=== PATIENT | female | born 1985 | race Caucasian/White ===

== ENCOUNTER 2017-09-20 17:52 | Emergency (ER) | payer OTHER ==
[~2017-09-20] VITALS: Ht 160 cm; Wt 60.0 kg
[2017-09-20 17:58] VITALS: TEMP 36.9; Ht 160 cm; Wt 60.0 kg
[2017-09-20] MEDS ORDERED: [UNRECOGNIZED DRUG - OTHER] PO (18:29)
[2017-09-20] MEDS ORDERED: FAMOTIDINE IV INJ 20 MG in DEXTROSE 5% 100ML 100 ML IV STA (18:37)
[2017-09-20] MEDS ORDERED: ACETAMINOPHEN 500 MG TAB PO STA (18:37)
[2017-09-20] MEDS ORDERED: ONDANSETRON INJ 2 MG/ML 2 ML VIAL IV STA (18:37)
[2017-09-20] MEDS ORDERED: SODIUM CHLORIDE 0.9% 1000ML 1,000 ML IV STA (18:37)
[2017-09-20 19:11] LABS: BASO % 0.5 %; BASO ABS # 0.03 K/uL (0-0.2); COMPLETE YES; EOS % 0.2 %; HEMATOCRIT 40.5 % (37-47); IG% 0.2 %; LYMPH % 5.4 %; LYMPH ABS # 0.31 K/uL (1.2-3.4); MEAN CELL VOLUME 96.7 fL (80-100); MEAN CORPUSCULAR HEMOGLOBIN 33.7 pg (25-34); MEAN CORPUSCULAR HGB CONC 34.8 g/dl (32-36); MEAN PLATELET VOLUME 9.7 fL (7.4-10.4); MONO % 6.3 %; NEUT % 87.4 %; PLATELET COUNT 241 K/uL (130-400); RED BLOOD COUNT 4.19 M/uL (4.2-5.4); WHITE BLOOD COUNT 5.72 K/uL (4.8-10.8)
[2017-09-20 19:21] LABS: BUN/CREATININE RATIO 22.5 (10-20); CALCIUM 8.9 mg/dl (8.5-10.1); CREATININE 0.74 mg/dl (0.60-1.20); POTASSIUM 3.6 mmol/L (3.5-5.1)
[2017-09-20 19:24] LABS: ALB/GLOB RATIO 1.2 (0.9-2)
--- NOTE | 2017-09-20 19:35 | EMERGENCY ROOM VISIT NOTE ---
History First contact with patient: 18:00 Chief Complaint: ABDOMINAL PAIN Stated Complaint: APPENDACITIS Nursing Triage Summary: pt to the ED with c/o n/v and not feeling well went to see pmd and they palpated abd and sent her here for r/o appy History of Present Illness The patient is a 31 year old female with hx of ovarian cyst who presents to the Emergency Room with complaints of abdominal pain that started this AM. Pain is described as 7/10 and worse in the RLQ. Associated with nausea and vomiting ( vomited x 2 this AM, watery, non-bilious, non-bloody), chills, decreased appetite. Had one small but soft/normal BM this AM. Denies fever, sob, cp, diarrhea/constipation, numbness/tingling. Went to PCP who was concerned for appendicitis and sent her here. Upreg reported to be neg at PCP office today. Pt is and sexually active. LMP was 08/25. 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 Review of Systems see below Constitutional: + chills, + fatigue, No fever Respiratory: No shortness of breath Cardiovascular: No chest pain Abdomen: + pain, + nausea, + vomiting, No diarrhea, No constipation Genitourinary - Female: No dysuria Neurologic: No numbness/tingling Past Medical/Surgical History Medical Problems: (1) Ovarian cyst Social History Smoking Status: Never Smoker Alcohol Use: none Drug Use: none Occupation Status: [employer] student Current/Historical Medications Scheduled [Juice Plus Complete], 2 CAP PO TID Scheduled PRN Ondansetron Hcl (Zofran), 4 MG PO Q6H PRN for Nausea Physical Exam Vital Signs Date Time Temp Pulse Resp B/P (MAP) Pulse Ox O2 Delivery O2 Flow Rate FiO2 09/20/17 20:07 71 16 101/56 100 Room Air 09/20/17 17:58 36.9 76 16 115/51 100 Room Air Physical Exam see below General Appearance: no apparent distress Head: normocephalic, atraumatic Eyes: normal inspection, sclerae normal Respiratory/Chest: lungs clear, normal breath sounds Cardiovascular: regular rate, rhythm, no edema, no murmur Abdomen / GI: normal bowel sounds, soft, + tenderness (TTP in the epigastric , LUQ, RLQ, and suprapubic regions; more tender over RLQ), + pertinent finding ( no rebound tenderness; neg price's sign and neg psoas sign) Back: no CVA tenderness Extremities: normal inspection, normal capillary refill, no pedal edema Neurologic/Psych: alert, oriented x 3 Medical Decision & Procedures Laboratory Results 09/20/17 18:10 Red Blood Count 4.19, Mean Corpuscular Volume 96.7, Mean Corpuscular Hemoglobin 33.7, Mean Corpuscular Hemoglobin Concent 34.8, Mean Platelet Volume 9.7, Neutrophils (%) (Auto) 87.4, Lymphocytes (%) (Auto) 5.4, Monocytes (%) (Auto) 6.3, Eosinophils (%) (Auto) 0.2, Basophils (%) (Auto) 0.5, Neutrophils # (Auto) 5.00, Lymphocytes # (Auto) 0.31, Monocytes # (Auto) 0.36, Eosinophils # (Auto) 0.01, Basophils # (Auto) 0.03 09/20/17 18:10 Test 09/20/17 18:10 White Blood Count 5.72 K/uL (4.8-10.8) Red Blood Count 4.19 M/uL (4.2-5.4) Hemoglobin 14.1 g/dL (12.0-16.0) Hematocrit 40.5 % (37-47) Mean Corpuscular Volume 96.7 fL (80-100) Mean Corpuscular Hemoglobin 33.7 pg (25-34) Mean Corpuscular Hemoglobin Concent 34.8 g/dl (32-36) Platelet Count 241 K/uL (130-400) Mean Platelet Volume 9.7 fL (7.4-10.4) Neutrophils (%) (Auto) 87.4 % Lymphocytes (%) (Auto) 5.4 % Monocytes (%) (Auto) 6.3 % Eosinophils (%) (Auto) 0.2 % Basophils (%) (Auto) 0.5 % Neutrophils # (Auto) 5.00 K/uL (1.4-6.5) Lymphocytes # (Auto) 0.31 K/uL (1.2-3.4) Monocytes # (Auto) 0.36 K/uL (0.11-0.59) Eosinophils # (Auto) 0.01 K/uL (0-0.5) Basophils # (Auto) 0.03 K/uL (0-0.2) RDW Standard Deviation 40.8 fL (36.4-46.3) RDW Coefficient of Variation 11.5 % (11.5-14.5) Immature Granulocyte % (Auto) 0.2 % Immature Granulocyte # (Auto) 0.01 K/uL (0.00-0.02) Urine Color YELLOW Urine Appearance CLEAR (CLEAR) Urine pH 6.5 (4.5-7.5) Urine Specific [place] 1.021 (1.000-1.030) Urine Protein NEG (NEG) Urine Glucose (UA) NEG (NEG) Urine Ketones 2+ (NEG) Urine Occult Blood NEG (NEG) Urine Nitrite NEG (NEG) Urine Bilirubin NEG (NEG) Urine Urobilinogen NEG (NEG) Urine Leukocyte Esterase SMALL (NEG) Urine WBC (Auto) 1-5 /hpf (0-5) Urine RBC (Auto) 0-4 /hpf (0-4) Urine Hyaline Casts (Auto) 1-5 /lpf (0-5) Urine Epithelial Cells (Auto) >30 /lpf (0-5) Urine Bacteria (Auto) NEG (NEG) Urine Test NEG (NEG) Anion Gap 7.0 mmol/L (3-11) Est Creatinine Clear Calc Drug Dose 92.8 ml/min Estimated GFR () 126.9 Estimated GFR (Non- 109.5 BUN/Creatinine Ratio 22.5 (10-20) Calcium Level 8.9 mg/dl (8.5-10.1) Total Bilirubin 1.3 mg/dl (0.2-1) Aspartate Amino Transf (AST/SGOT) 23 U/L (15-37) Alanine Aminotransferase (ALT/SGPT) 31 U/L (12-78) Alkaline Phosphatase 51 U/L (45-117) Total Protein 7.8 gm/dl (6.4-8.2) Albumin 4.3 gm/dl (3.4-5.0) Globulin 3.5 gm/dl (2.5-4.0) Albumin/Globulin Ratio 1.2 (0.9-2) Lipase 115 U/L (73-393) Medications Administered Medications (Trade) Dose Ordered Sig/Jennie Route Start Time Stop Time Status Last Admin Dose Admin Ondansetron HCl (Zofran Inj) 4 mg NOW STAT IV 09/20/17 18:37 09/20/17 18:40 DC 09/20/17 18:51 4 MG Acetaminophen (Tylenol Tab) 1,000 mg NOW STAT PO 09/20/17 18:37 09/20/17 18:40 DC 09/20/17 18:50 1,000 MG Famotidine 20 mg/ Dextrose 102 ml @ 200 mls/hr ONE STAT IV 09/20/17 18:37 09/20/17 19:07 DC 09/20/17 18:54 200 MLS/HR Sodium Chloride 1,000 ml @ 999 mls/hr Q1H1M STAT IV 09/20/17 18:37 09/20/17 19:37 DC 09/20/17 18:37 999 MLS/HR ED Course CBC: wnl CMP: wnl Lipase: 115 nl UA: small LE no WBC Upreg: neg US appendix: appendix not visualized. Trace RLQ fluid US pelvis complete and transvaginal: normal uterus and R ovary. L ovary [address] abdomen/pelvis w/t IV contrast given improvement in nausea with medications but continued pain to rule out appendicitis - normal appendix, no bowel wall thickening or obstruction noted, 3.4cm L ovarian cyst consistent with US and physiologic pelvic free fluid Clinically stable for discharged home with Zofran 4mg PO Q6H 10 tabs and PCP follow up Medical Decision 31 year old female with hx of ovarian cyst present with abdominal pain associated with n/v consistent with likely viral gastroenteritis vs. appendicitis vs. hemorrhagic ovarian cyst vs. colitis -Ordered imaging: US complete pelvis, transvaginal pelvis and appendix US -Ordered labs Upreg, UA/UCx, CBC w/t diff, CMP, lipase -Ordered meds: Zofran 4mg IV, Pepcid 20mg IV and Tylenol 1000mg PO once/stat -Will follow up on results and manage as indicated Impression Primary Impression: Acute gastroenteritis Departure Information Prescriptions Ondansetron Hcl (ZOFRAN) 4 Mg Tab 4 MG PO Q6H Y for Nausea, #10 TAB Prov: Angie Richey M.D. 09/20/17 Referrals No Doctor, Assigned (PCP) Patient Instructions My [facility]
--- NOTE | 2017-09-20 20:00 | EMERGENCY ROOM VISIT NOTE ---
History Report prepared by Julius: Karen Hong Under the Supervision of: Dr. Jamison Erwin M.D. First contact with patient: 18:00 Chief Complaint: ABDOMINAL PAIN Stated Complaint: APPENDACITIS Nursing Triage Summary: pt to the ED with c/o n/v and not feeling well went to see pmd and they palpated abd and sent her here for r/o appy History of Present Illness The patient is a 31 year old female who presents to the Emergency Room with complaints of persistent abdominal pain starting this morning. The patient was sent to the ED from her doctor's office. The patient started having nausea first. The abdominal pain and vomiting started afterwards. She has vomited 2 times today. The vomit was watery and not bloody. She has never had this abdominal pain before. She has had chills and decreased appetite. She denies any fever, urinary symptoms, chest pain, leg swelling, black stools, bloody stools, diarrhea, or constipation. Her last bowel movement was this morning. It was a smaller BM than usual, but she did not strain. Her last menstrual period was about 1 month ago. She is due for her period. She has had menstrual cramps in the past, but her current pain is different. She has not had any abdominal surgeries. 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 She has a history of ovarian cyst. She is sexually active. She denies any other medical problems. Source of History: patient Onset: this morning Position: abdomen Quality: other (pain) Timing: other (persistent) Associated Symptoms: + chills, + nausea, + vomiting, No fevers, No chest pain, No melena, No hematochezia, No diarrhea, No urinary symptoms Note: Pt reports decreased appetite. Pt denies leg swelling. Review of Systems See HPI for pertinent positives and negatives. A total of ten systems were reviewed and were otherwise negative. Past Medical & Surgical Medical Problems: (1) Ovarian cyst Family History No pertinent family history stated. Social History Smoking Status: Never Smoker Alcohol Use: none Drug Use: none Marital Status: Occupation Status: employed Current/Historical Medications Scheduled [Juice Plus Complete], 2 CAP PO TID Scheduled PRN Ondansetron Hcl (Zofran), 4 MG PO Q6H PRN for Nausea Allergies Coded Allergies: No Known Allergies (Unverified , 09/20/17) Physical Exam Vital Signs Date Time Temp Pulse Resp B/P (MAP) Pulse Ox O2 Delivery O2 Flow Rate FiO2 09/20/17 21:55 56 16 108/53 99 Room Air 09/20/17 20:07 71 16 101/56 100 Room Air 09/20/17 17:58 36.9 76 16 115/51 100 Room Air Physical Exam GENERAL: Awake, alert, relatively well-appearing, in no distress HENT: Normocephalic, atraumatic. Oropharynx unremarkable. EYES: Normal conjunctiva. Sclera non-icteric. NECK: Supple. No nuchal rigidity. FROM. No JVD. RESPIRATORY: Clear to auscultation. CARDIAC: Regular rate, normal rhythm. Extremities warm and well perfused. Pulses equal. ABDOMEN: Soft, non-distended. Mild LUQ, epigastric, and RLQ tenderness to palpation. No peritoneal signs. Negative Rovsing's and psoas sign. No rebound or guarding. No masses. RECTAL: Deferred. MUSCULOSKELETAL: Chest examination reveals no tenderness. The back is symmetrical on inspection without obvious abnormality. There is no CVA tenderness to palpation. No joint edema. LOWER EXTREMITIES: Calves are equal size bilaterally and non-tender. No edema. No discoloration. NEURO: Normal sensorium. No sensory or motor deficits noted. SKIN: No rash or jaundice noted. Medical Decision & Procedures ER Provider Diagnostic Interpretation: Radiology results as stated below per my review and radiologist interpretation: PELVIC ULTRASOUND, TRANSABDOMINAL AND TRANSVAGINAL HISTORY: Lower abdominal pain COMPARISON: None. FINDINGS: Uterus: Unremarkable. Endometrial stripe: 1 cm in thickness. Right ovary: Normal in size and demonstrates normal color flow. Left ovary: The left ovary is mildly enlarged measures 7.1 x 3.2 x 4.7 cm. This is primarily due to the 2 dominant cystic structures within the left ovary which measure 4.1 and 3.1 cm in size. Normal color flow within the left ovarian parenchyma. The 4.1 cm cystic lesion contains a punctate echogenic focus along the periphery which measures 5 mm. Miscellaneous:Trace pelvic free fluid. IMPRESSION: 1. Normal uterus and right ovary. 2. There are 2 dominant cystic structures within the left ovary. The larger 4.1 cm cystic lesion contains a punctate echogenic focus. Otherwise, these appear to represent simple cysts. 3. Normal color flow within the bilateral ovaries. Of note, ovarian torsion is considered to be a clinical diagnosis. Electronically signed by: Neal Garcia M.D. 09/20/2017 8:19 PM Dictated Date/Time: 09/20/2017 8:16 PM APPENDIX ULTRASOUND HISTORY: Right lower quadrant abdominal pain. COMPARISON: None. FINDINGS: Transabdominal scanning of the right lower quadrant was performed. The appendix was not identified. Trace fluid within the right lower quadrant. IMPRESSION: The appendix was not identified. Trace fluid seen within the right lower quadrant. Electronically signed by: Neal Garcia M.D. 09/20/2017 8:16 PM Dictated Date/Time: 09/20/2017 8:16 PM ABDOMEN AND PELVIS CT WITH IV CONTRAST CT DOSE: 278.97 mGy.cm HISTORY: Right lower quadrant abdominal pain. TECHNIQUE: Multiaxial CT images of the abdomen and pelvis were performed following the use of intravenous contrast. A dose lowering technique was utilized adhering to the principles of ALARA. COMPARISON STUDY: Pelvic ultrasound 09/20/2017. FINDINGS: The lung bases are clear. No pneumoperitoneum. No pneumatosis. No fractures within the visualized osseous structures. The liver, spleen, pancreas, gallbladder, adrenal glands, and kidneys are within normal limits. No hydronephrosis. Normal caliber abdominal aorta. No retroperitoneal lymphadenopathy. The bladder, uterus, and right ovary within normal limits. There is a 3.4 cm left ovarian cyst. This is better appreciated on the same day pelvic ultrasound. Trace pelvic free fluid. No bowel wall thickening or obstruction. The visualized appendix is normal in caliber. This measures 4 mm in diameter. IMPRESSION: 1. No bowel wall thickening or obstruction. 2. Normal appendix. 3. Redemonstration of the dominant 3.4 cm left ovarian cyst. This is better appreciated on the same day pelvic ultrasound. 4. Trace pelvic free fluid, likely physiologic. Electronically signed by: Neal Garcia M.D. 09/20/2017 9:22 PM Dictated Date/Time: 09/20/2017 9:15 PM Laboratory Results 09/20/17 18:10 Red Blood Count 4.19, Mean Corpuscular Volume 96.7, Mean Corpuscular Hemoglobin 33.7, Mean Corpuscular Hemoglobin Concent 34.8, Mean Platelet Volume 9.7, Neutrophils (%) (Auto) 87.4, Lymphocytes (%) (Auto) 5.4, Monocytes (%) (Auto) 6.3, Eosinophils (%) (Auto) 0.2, Basophils (%) (Auto) 0.5, Neutrophils # (Auto) 5.00, Lymphocytes # (Auto) 0.31, Monocytes # (Auto) 0.36, Eosinophils # (Auto) 0.01, Basophils # (Auto) 0.03 09/20/17 18:10 Test 09/20/17 18:10 White Blood Count 5.72 K/uL (4.8-10.8) Red Blood Count 4.19 M/uL (4.2-5.4) Hemoglobin 14.1 g/dL (12.0-16.0) Hematocrit 40.5 % (37-47) Mean Corpuscular Volume 96.7 fL (80-100) Mean Corpuscular Hemoglobin 33.7 pg (25-34) Mean Corpuscular Hemoglobin Concent 34.8 g/dl (32-36) Platelet Count 241 K/uL (130-400) Mean Platelet Volume 9.7 fL (7.4-10.4) Neutrophils (%) (Auto) 87.4 % Lymphocytes (%) (Auto) 5.4 % Monocytes (%) (Auto) 6.3 % Eosinophils (%) (Auto) 0.2 % Basophils (%) (Auto) 0.5 % Neutrophils # (Auto) 5.00 K/uL (1.4-6.5) Lymphocytes # (Auto) 0.31 K/uL (1.2-3.4) Monocytes # (Auto) 0.36 K/uL (0.11-0.59) Eosinophils # (Auto) 0.01 K/uL (0-0.5) Basophils # (Auto) 0.03 K/uL (0-0.2) RDW Standard Deviation 40.8 fL (36.4-46.3) RDW Coefficient of Variation 11.5 % (11.5-14.5) Immature Granulocyte % (Auto) 0.2 % Immature Granulocyte # (Auto) 0.01 K/uL (0.00-0.02) Urine Color YELLOW Urine Appearance CLEAR (CLEAR) Urine pH 6.5 (4.5-7.5) Urine Specific [place] 1.021 (1.000-1.030) Urine Protein NEG (NEG) Urine Glucose (UA) NEG (NEG) Urine Ketones 2+ (NEG) Urine Occult Blood NEG (NEG) Urine Nitrite NEG (NEG) Urine Bilirubin NEG (NEG) Urine Urobilinogen NEG (NEG) Urine Leukocyte Esterase SMALL (NEG) Urine WBC (Auto) 1-5 /hpf (0-5) Urine RBC (Auto) 0-4 /hpf (0-4) Urine Hyaline Casts (Auto) 1-5 /lpf (0-5) Urine Epithelial Cells (Auto) >30 /lpf (0-5) Urine Bacteria (Auto) NEG (NEG) Urine Test NEG (NEG) Anion Gap 7.0 mmol/L (3-11) Est Creatinine Clear Calc Drug Dose 92.8 ml/min Estimated GFR () 126.9 Estimated GFR (Non- 109.5 BUN/Creatinine Ratio 22.5 (10-20) Calcium Level 8.9 mg/dl (8.5-10.1) Total Bilirubin 1.3 mg/dl (0.2-1) Aspartate Amino Transf (AST/SGOT) 23 U/L (15-37) Alanine Aminotransferase (ALT/SGPT) 31 U/L (12-78) Alkaline Phosphatase 51 U/L (45-117) Total Protein 7.8 gm/dl (6.4-8.2) Albumin 4.3 gm/dl (3.4-5.0) Globulin 3.5 gm/dl (2.5-4.0) Albumin/Globulin Ratio 1.2 (0.9-2) Lipase 115 U/L (73-393) Laboratory results reviewed by me Medications Administered Medications (Trade) Dose Ordered Sig/Jennie Route Start Time Stop Time Status Last Admin Dose Admin Ondansetron HCl (Zofran Inj) 4 mg NOW STAT IV 09/20/17 18:37 09/20/17 18:40 DC 09/20/17 18:51 4 MG Acetaminophen (Tylenol Tab) 1,000 mg NOW STAT PO 09/20/17 18:37 09/20/17 18:40 DC 09/20/17 18:50 1,000 MG Famotidine 20 mg/ Dextrose 102 ml @ 200 mls/hr ONE STAT IV 09/20/17 18:37 09/20/17 19:07 DC 09/20/17 18:54 200 MLS/HR Sodium Chloride 1,000 ml @ 999 mls/hr Q1H1M STAT IV 09/20/17 18:37 09/20/17 19:37 DC 09/20/17 18:37 999 MLS/HR ED Course 1828: The patient was evaluated in room C2B. A complete history and physical exam was performed. 2155: The patient has been informed of the results and treatment plan. She is ready for discharge. Medical Decision I reviewed the patient's past medical history, medications, and the nursing notes as described above. Differential diagnosis: gastroenteritis, biliary etiology, appendicitis, hemorrhagic cyst, ectopic , ovarian torsion, UTI, pyelonephritis, ureteral stone. Patient is a 31-year-old woman presents emergency Department with generalized abdominal pain with nausea and vomiting that started today and was sent to the ED from her PCPs clinic for evaluation per hpi. On arrival the patient is uncomfortable but in no acute distress, afebrile stable vital signs. On exam the patient has generalized abdominal tenderness mostly in the left upper and right lower quadrants. Pelvic ultrasound negative for any right-sided findings to explain the patient's symptoms. The appendix with unidentified appendix but trace free fluid that could be physiologic. Patient was reassessed and feeling improved in terms of nausea but still with persistent pain therefore CT scan was done and negative for any acute findings. Labs reassuring. Sx most likely related to a gastroenteritis. Findings and plan for follow-up reviewed with patient. Patient agreeable and d/c'd per discharge instructions. I discussed the case with the resident physician, examined the patient, and agree with the findings and plan as documented in the residents note unless otherwise clarified here by me. Medication Reconcilliation Current Medication List: was personally reviewed by me Blood Pressure Screening Patient's blood pressure: Normal blood pressure Blood pressure disposition: Did not require urgent referral Impression Primary Impression: Gastroenteritis Scribe Attestation The scribe's documentation has been prepared under my direction and personally reviewed by me in its entirety. I confirm that the note above accurately reflects all work, treatment, procedures, and medical decision making performed by me. Departure Information Dispostion Home / Self-Care Prescriptions Ondansetron Hcl (ZOFRAN) 4 Mg Tab 4 MG PO Q6H Y for Nausea, #10 TAB Prov: Angie Richey M.D. 09/20/17 Referrals No Doctor, Assigned (PCP) Forms HOME CARE DOCUMENTATION FORM, IMPORTANT VISIT INFORMATION Patient Instructions My [facility] Additional Instructions Please take Zofran as prescribed for nausea/vomitting as needed Follow up with your primary care doctor in regards to L ovarian cysts Follow up with your primary care doctor within 3-4 days
[2017-09-20 20:17] LABS: URINE APPEARANCE CLEAR (CLEAR); URINE BILIRUBIN NEG (NEG); URINE COLOR YELLOW; URINE EPITHELIAL CELL AUTO >30 /lpf (0-5); URINE NITRITE NEG (NEG); URINE PH 6.5 (4.5-7.5); URINE SPECIFIC GRAVITY 1.021 (1.000-1.030); UROBILINOGEN NEG (NEG); ZZUR CULT IF INDIC CLEAN CATCH NO
[2017-09-20 20:18] LABS: MANUAL MICROSCOPIC REQUIRED? NO; REVIEW REQ? NO
--- NOTE | 2017-09-20 20:18 | DIAGNOSTIC IMAGING REPORT ---
APPENDIX ULTRASOUND HISTORY: Right lower quadrant abdominal pain. COMPARISON: None. FINDINGS: Transabdominal scanning of the right lower quadrant was performed. The appendix was not identified. Trace fluid within the right lower quadrant. IMPRESSION: The appendix was not identified. Trace fluid seen within the right lower quadrant. Electronically signed by: Neal Garcia M.D. 09/20/2017 8:16 PM Dictated Date/Time: 09/20/2017 8:16 PM
--- NOTE | 2017-09-20 20:21 | DIAGNOSTIC IMAGING REPORT ---
PELVIC ULTRASOUND, TRANSABDOMINAL AND TRANSVAGINAL HISTORY: Lower abdominal pain COMPARISON: None. FINDINGS: Uterus: Unremarkable. Endometrial stripe: 1 cm in thickness. Right ovary: Normal in size and demonstrates normal color flow. Left ovary: The left ovary is mildly enlarged measures 7.1 x 3.2 x 4.7 cm. This is primarily due to the 2 dominant cystic structures within the left ovary which measure 4.1 and 3.1 cm in size. Normal color flow within the left ovarian parenchyma. The 4.1 cm cystic lesion contains a punctate echogenic focus along the periphery which measures 5 mm. Miscellaneous:Trace pelvic free fluid. IMPRESSION: 1. Normal uterus and right ovary. 2. There are 2 dominant cystic structures within the left ovary. The larger 4.1 cm cystic lesion contains a punctate echogenic focus. Otherwise, these appear to represent simple cysts. 3. Normal color flow within the bilateral ovaries. Of note, ovarian torsion is considered to be a clinical diagnosis. Electronically signed by: Neal Garcia M.D. 09/20/2017 8:19 PM Dictated Date/Time: 09/20/2017 8:16 PM
[2017-09-20] MEDS ORDERED: OPTIRAY 320 IV PRN (21:00)
--- NOTE | 2017-09-20 21:23 | DIAGNOSTIC IMAGING REPORT ---
ABDOMEN AND PELVIS CT WITH IV CONTRAST CT DOSE: 278.97 mGy.cm HISTORY: Right lower quadrant abdominal pain. TECHNIQUE: Multiaxial CT images of the abdomen and pelvis were performed following the use of intravenous contrast. A dose lowering technique was utilized adhering to the principles of ALARA. COMPARISON STUDY: Pelvic ultrasound 09/20/2017. FINDINGS: The lung bases are clear. No pneumoperitoneum. No pneumatosis. No fractures within the visualized osseous structures. The liver, spleen, pancreas, gallbladder, adrenal glands, and kidneys are within normal limits. No hydronephrosis. Normal caliber abdominal aorta. No retroperitoneal lymphadenopathy. The bladder, uterus, and right ovary within normal limits. There is a 3.4 cm left ovarian cyst. This is better appreciated on the same day pelvic ultrasound. Trace pelvic free fluid. No bowel wall thickening or obstruction. The visualized appendix is normal in caliber. This measures 4 mm in diameter. IMPRESSION: 1. No bowel wall thickening or obstruction. 2. Normal appendix. 3. Redemonstration of the dominant 3.4 cm left ovarian cyst. This is better appreciated on the same day pelvic ultrasound. 4. Trace pelvic free fluid, likely physiologic. Electronically signed by: Neal Garcia M.D. 09/20/2017 9:22 PM Dictated Date/Time: 09/20/2017 9:15 PM
[2017-09-20] MEDS ORDERED: ONDA4TAB46 PO (21:38)
[2017-09-20 21:55] VITALS: BP 108/53; PULSE 56; O2SAT 99
== END 2017-09-20 22:00 | disposition home or self-care (01) ==
LOC: C.EDB 17:53 → C.EDC 22:00
DX: K52.9 Noninfective gastroenteritis and colitis, unspecified (principal)

== ENCOUNTER 2018-12-16 09:29 | Inpatient (IN) ==
[2018-12-16] MEDS ORDERED: LACTATED RINGER'S 1,000 ML IV PRN ×2 (09:53→21:08)
[2018-12-16] MEDS ORDERED: OXYTOCIN 30 UNITS/500 ML BAG IV PRN ×2 (09:53→21:08)
--- NOTE | 2018-12-16 10:08 | Obstetrical Progress Note ---
Date of Service December 16, 2018 Subjective Admit Note 33 F P0000 at 39.2 weeks admitted with SROM clear fluid. GBS is negative. FHT Cat 1. Cervix 4/70/-2/vertex/anterior/soft. EFW 7.5 lbs. Will admit in early labor and ambulate. Physical Exam Vital Signs (Past 24 Hours): Last Vital Signs Pulse 77 12/16/18 09:41 BP 112/77 12/16/18 09:41
[2018-12-16 10:26] LABS: Hemoglobin 13.3 g/dL (12.0-16.0); Mean Corpuscular Hgb Conc 36.9 g/dL (32-36); Mean Corpuscular Volume 93.5 fL (80-100); Platelet Count 239 K/uL (130-400); RDW Coefficient of Variation 12.1 % (11.5-14.5); RDW Standard Deviation 40.8 fL (36.4-46.3); Red Blood Count 3.85 M/uL (4.2-5.4); White Blood Count 8.32 K/uL (4.8-10.8)
--- NOTE | 2018-12-16 15:18 | Obstetrical Progress Note ---
Date of Service December 16, 2018 Subjective doing well cervix 4/80/-2 FHT Cat 1 Will continue to ambulate Physical Exam Vital Signs (Past 24 Hours): Last Vital Signs Temp 36.6 C 12/16/18 09:48 Pulse 78 12/16/18 15:00 Resp 20 12/16/18 09:48 BP 121/77 12/16/18 15:00
[2018-12-16] MEDS: LACTATED RINGER'S 1,000 ML IV SCH ×2 (16:15→17:21)
[2018-12-16] MEDS ORDERED: BUPIVACAINE 0.25% 30 ML VIAL ONE (16:21)
[2018-12-16] MEDS ORDERED: fentaNYL citrate 100 MCG/2 ML VIAL ONE (16:22)
[2018-12-16] MEDS ORDERED: fentaNYL 2MCG/ML ROPIV 1.25MG/ML 100 ML BAG EPI ONE (16:22)
[2018-12-16] MEDS ORDERED: ePHEDrine sulfate 50 MG/ML AMP ONE (16:22)
--- NOTE | 2018-12-16 17:00 | Anesthesiology Consultation ---
Date of Service December 16, 2018 Assessment & Plan (1) Encounter for pre-operative examination: Chart Review Chart Review: Patient NOT seen in Pre Admission Testing and Acceptable Risk for Labor Epidural Consults Requested none History Height/Weight Height: 5 ft 3 in Weight: 69.853 kg Allergies Allergy/AdvReac Type Severity Reaction Status Date / Time No Known Allergies Allergy Unverified 09/20/17 18:26 Medications Home Medications Medication Instructions Recorded Confirmed Last Taken JUICE PLUS COMPLETE 2 cap PO BID #0 09/20/17 12/16/18 12/16/18 06:00 Active Medications Generic Name Dose Route Start Last Admin Trade Name Freq PRN Reason Stop Dose Admin Lactated Ringer's 1,000 mls @ 125 mls/hr 12/16/18 10:00 12/16/18 16:20 Lr IV 12/18/18 09:59 999 mls/hr .Q8H MIGEL Infusion Past Medical History none Past Surgical History Surgical History H/O shoulder surgery Past Anesthesia History No Hx of Anesthesia Complications and No Family Hx of Anesthesia Complications History of PONV No Motion Sickness Screening History of Motion Sickness: No Social History Smoking Status: Never smoker Hx Alcohol Use: No Hx Substance Use: No substance use type: does not use Exercise / Class Metabolic Activity II 4-5 Yardwork/Stairs/Walk up hill Physical Exam Vital Signs Last Vital Signs Temp 36.5 C 12/16/18 15:00 Pulse 82 12/16/18 16:54 Resp 20 12/16/18 15:00 BP 121/77 12/16/18 15:00 Pulse Ox 100 12/16/18 16:54 Testing Laboratory Results 12/16/18 10:13
--- NOTE | 2018-12-16 21:07 | Obstetrical Progress Note ---
Date of Service December 16, 2018 Physical Exam Vital Signs (Past 24 Hours): Last Vital Signs Temp 36.7 C 12/16/18 19:01 Pulse 82 12/16/18 21:01 Resp 20 12/16/18 20:01 BP 140/74 12/16/18 21:01 Pulse Ox 99 12/16/18 20:59 Genitourinary: Manual OB Exam: + cervical dilation 7 cm, + cervical effacement 70%, + station -2 and + amniotic fluid clear OB Exam Monitor Tracing: + external FHT monitor used, + external uterine monitor used and + category I will start Oxytocin to augment contractions
[2018-12-17] MEDS: LACTATED RINGER'S 1,000 ML IV SCH (01:01)
[2018-12-17] MEDS ORDERED: fentaNYL 2MCG/ML ROPIV 1.25MG/ML 100 ML BAG EPI ONE (02:01)
[2018-12-17] MEDS ORDERED: OXYTOCIN 30 UNITS/500 ML BAG IV PRN (04:16)
[2018-12-17] MEDS ORDERED: HYDROCORTISONE ACETATE 25 MG SUPP PR PRN (04:16)
[2018-12-17] MEDS ORDERED: BISACODYL 10 MG SUPP PR PRN (04:16)
[2018-12-17] MEDS ORDERED: DIPHTHERIA/TETANUS/PERTUSSIS 0.5 ML SYR/VIAL IM ONE (04:16)
--- NOTE | 2018-12-17 04:18 | Obstetrical Progress Note ---
Date of Service December 17, 2018 Physical Exam Vital Signs (Past 24 Hours): Last Vital Signs Temp 36.6 C 12/17/18 03:10 Pulse 103 H 12/17/18 04:16 Resp 20 12/17/18 01:01 BP 127/60 12/17/18 04:16 Pulse Ox 99 12/17/18 04:00
--- NOTE | 2018-12-17 04:22 | Procedure Note ---
Vaginal Delivery Summary Date of Service December 17, 2018 Supervising Physician Co-Signing Physician Notes Delivery Note live female over intact perineum EDMAR with Apgars 7/9 weight pending. Delayed cord clamping followed by cord blood and spontaneous delivery of intact placenta. No tears. EBL 250 ml. Final sponge and instrument count are correct. Mom and baby stable.
[2018-12-17] MEDS ORDERED: LACTATED RINGER'S 1,000 ML IV PRN (06:10)
[2018-12-17] MEDS ORDERED: ePHEDrine sulfate 50 MG/ML AMP IV PRN (06:10)
[2018-12-17] MEDS ORDERED: NALOXONE HCL 0.4 MG/1 ML VIAL/CARP IV PRN (06:10)
[2018-12-17] MEDS ORDERED: NALBUPHINE HCL INJ 10 MG/ML AMP IV PRN (06:10)
[2018-12-17] MEDS ORDERED: NALOXONE HCL 1 MG in SODIUM CHLORIDE 0.9% 1000ML 1,000 ML IV PRN (06:10)
[2018-12-17] MEDS ORDERED: ONDANSETRON INJ 2 MG/ML 2 ML VIAL IV PRN (06:10)
[2018-12-17] MEDS ORDERED: DiphenhydrAMINE HCL 50 MG/ML VIAL IV PRN (06:10)
[2018-12-17] MEDS ORDERED: fentaNYL 2MCG/ML ROPIV 1.25MG/ML 100 ML BAG EPI PRN (06:10)
--- NOTE | 2018-12-17 07:45 | Anesthesia Procedure Note ---
Date of Service December 17, 2018 Anesthesia Post Epidural Note Vital Signs Vital Signs: Temp Pulse Resp BP Pulse Ox 36.6 C 76 18 93/53 L 99 12/17/18 03:10 12/17/18 06:30 12/17/18 06:00 12/17/18 06:30 12/17/18 04:00 Notes Mental Status: alert / awake / arousable and participated in evaluation Nausea / Vomiting: adequately controlled Pain: adequately controlled Airway Patency, RR, SpO2: stable & adequate BP & HR: stable & adequate Hydration State: stable & adequate Neuraxial Anesthesia: was administered and sensory block is resolving Anesthetic Complications: no major complications apparent and Pt Satisfied with anesthetic care Epidural: Removed without complications and With tip intact
[2018-12-17] MEDS: PRENATAL VITAMIN 1 TAB PO SCH (08:35)
[2018-12-17] MEDS: DOCUSATE SODIUM 100 MG CAP PO SCH ×2 (08:35→20:48)
[2018-12-17] MEDS: FERROUS SULFATE 325 MG TAB PO SCH (08:35)
[2018-12-17] MEDS: IBUPROFEN 600 MG TAB PO PRN ×3 (08:43→20:48)
[2018-12-17] MEDS ORDERED: [UNRECOGNIZED DRUG - OTHER] PO SCH (09:00)
[2018-12-17] MEDS: BENZOCAINE 20% AER SPR 82.5 GM CAN EXT PRN (18:13)
[2018-12-17] MEDS: SUPERCREAM 0.870% 15 GM JAR EXT PRN (18:13)
--- NOTE | 2018-12-17 18:58 | Obstetrical Progress Note ---
Date of Service December 17, 2018 Subjective Patient is seen and examined. She feels well, no complaints. Ambulating without dizziness Voiding without difficulty Tolerating regular diet with out N&V Bleeding is minimal No fever/ chills/ CP/ SOB/ N&V/ Leg pain Breast feeding without problems Vital Signs Temp Pulse Resp BP Pulse Ox 12/17/18 15:30 36.7 C 85 16 110/69 12/17/18 07:45 36.8 C 74 18 116/74 100 PE: General: Alert, orientedx3, NAD Abd: soft, NT, fundus firm, below Umbilicus Perineum intact, Lochia rubra minimal Ext; NT, no edema AP: 33 yo s/p , ppd# 0 VSS Afebrile doing well Continue routine care All questions were answered Physical Exam Vital Signs (Past 24 Hours): Last Vital Signs Temp 36.7 C 12/17/18 15:30 Pulse 85 12/17/18 15:30 Resp 16 12/17/18 15:30 BP 110/69 12/17/18 15:30 Pulse Ox 100 12/17/18 07:45
[2018-12-17] MEDS ORDERED: BISACODYL 5 MG TABEC PO SCH (19:00)
[2018-12-18] MEDS: ACETAMINOPHEN 325 MG TAB PO PRN ×2 (00:21→06:16)
[2018-12-18] MEDS: IBUPROFEN 600 MG TAB PO PRN ×3 (00:21→20:21)
[2018-12-18 07:01] LABS: Hematocrit (blood only) 34.2 % (37-47); Hemoglobin 12.1 g/dL (12.0-16.0); Mean Corpuscular Hgb Conc 35.4 g/dL (32-36); Mean Corpuscular Volume 95.3 fL (80-100); Mean Platelet Volume 10.3 fL (7.4-10.4); Platelet Count 267 K/uL (130-400); RDW Coefficient of Variation 12.5 % (11.5-14.5); RDW Standard Deviation 43.3 fL (36.4-46.3); Red Blood Count 3.59 M/uL (4.2-5.4); White Blood Count 10.92 K/uL (4.8-10.8)
--- NOTE | 2018-12-18 08:20 | Obstetrical Progress Note ---
Date of Service December 18, 2018 Physical Exam Vital Signs (Past 24 Hours): Last Vital Signs Temp 36.7 C 12/18/18 05:40 Pulse 65 12/18/18 05:40 Resp 18 12/18/18 05:40 BP 108/65 12/18/18 05:40 Pulse Ox 100 12/17/18 07:45 Physical Exam: abdomen soft and non tender vaginal bleeding scant to moderate no calf tenderness ambulating well
[2018-12-18] MEDS: PRENATAL VITAMIN 1 TAB PO SCH (08:58)
[2018-12-18] MEDS: DOCUSATE SODIUM 100 MG CAP PO SCH ×2 (08:58→20:21)
[2018-12-18] MEDS: FERROUS SULFATE 325 MG TAB PO SCH (08:58)
[2018-12-18] MEDS: SUPERCREAM 0.870% 15 GM JAR EXT PRN (08:58)
[2018-12-18] MEDS: BENZOCAINE 20% AER SPR 82.5 GM CAN EXT PRN (08:59)
[2018-12-18] MEDS ORDERED: BISACODYL 5 MG TABEC PO SCH (20:00)
[2018-12-19] MEDS: IBUPROFEN 600 MG TAB PO PRN ×2 (06:07→10:45)
[2018-12-19 07:19] LABS: Hematocrit (blood only) 31.4 % (37-47)
--- NOTE | 2018-12-19 08:35 | Obstetrical Progress Note ---
Date of Service December 19, 2018 Subjective Patient is seen and examined. She feels well, no complaints. Ambulating without dizziness Voiding without difficulty Tolerating regular diet with out N&V Bleeding is minimal No fever/ chills/ CP/ SOB/ N&V/ Leg pain Breast feeding without problems Vital Signs Temp Pulse Resp BP Pulse Ox 12/19/18 08:00 36.5 C 65 18 99/59 L 98 12/18/18 23:30 36.9 C 68 18 98/49 L 12/18/18 19:59 36.8 C 79 18 104/62 99 12/18/18 16:00 36.5 C 87 18 137/87 100 12/19/18 Range/Units 07:02 Hgb 11.0 L (12.0-16.0) g/dL Hct 31.4 L (37-47) % PE: General: Alert, orientedx3, NAD Abd: soft, NT, fundus firm, below Umbilicus Perineum intact, Lochia rubra minimal Ext; NT, trace feet edema, Homans sign neg/ neg AP: 33 yo s/p , ppd# 2 VSS Afebrile doing well Continue routine care All questions were answered Discussed when to call, contraception D/C home , f/u in office Physical Exam Vital Signs (Past 24 Hours): Last Vital Signs Temp 36.5 C 12/19/18 08:00 Pulse 65 12/19/18 08:00 Resp 18 12/19/18 08:00 BP 99/59 L 12/19/18 08:00 Pulse Ox 98 12/19/18 08:00
[2018-12-19] MEDS: PRENATAL VITAMIN 1 TAB PO SCH (08:45)
[2018-12-19] MEDS: FERROUS SULFATE 325 MG TAB PO SCH (08:45)
[2018-12-19] MEDS: DOCUSATE SODIUM 100 MG CAP PO SCH (08:45)
[2018-12-19 15:39] VITALS: BP 116/44; PULSE 69; TEMP 98.1; O2SAT 100
== END 2018-12-19 18:50 | disposition home or self-care (01) | DRG 807 ==
LOC: OPB 09:29 → 4S1 09:29 → 4S2 12-17 06:49